=== PATIENT | male | born 1995 | race Caucasian/White ===

== ENCOUNTER 2018-04-01 06:07 | Inpatient (IN) | payer OTHER ==
[2018-04-01 07:00] LABS: HEMATOCRIT 48.3 % (42.0-52.0); HEMOGLOBIN 16.6 g/dl (13.5-17.5); MEAN CORPUSCULAR HEMOGLOBIN 30.5 pg (27.0-33.0); MEAN CORPUSCULAR HGB CONC 34.4 g/dl (32.0-36.5); MEAN CORPUSCULAR VOLUME 88.6 fl (80.0-96.0); PLATELET COUNT, AUTOMATED 275 10^3/uL (150-450); RED BLOOD COUNT 5.45 10^6/uL (4.30-6.10); RED CELL DISTRIBUTION WIDTH 11.9 % (11.5-14.5); WHITE BLOOD COUNT 6.1 10^3/uL (4.0-10.0)
[2018-04-01 07:27] LABS: AMPHETAMINES LEVEL URINE NEGATIVE (NEGATIVE); BARBITURATES URINE NEGATIVE (NEGATIVE); BENZODIAZEPINES URINE NEGATIVE (NEGATIVE); CANNABINOIDS URINE NEGATIVE (NEGATIVE); COCAINE METABOLITE URINE NEGATIVE (NEGATIVE); METHADONE URINE NEGATIVE (NEGATIVE); OPIATES URINE NEGATIVE (NEGATIVE); PHENCYCLIDINE URINE NEGATIVE (NEGATIVE)
[2018-04-01 07:39] LABS: ACETAMINOPHEN LEVEL < 2.0 UG/ML (10.0-30.0); ALBUMIN 4.8 GM/DL (3.2-5.2); ALBUMIN/GLOBULIN RATIO 1.37 (1.00-1.93); ALKALINE PHOSPHATASE 121 U/L (45-117); ALT/SGPT 33 U/L (12-78); ANION GAP 8 MEQ/L (8-16); AST/SGOT 29 U/L (7-37); BILIRUBIN,DIRECT 0.3 MG/DL (0.0-0.2); BILIRUBIN,TOTAL 1.6 MG/DL (0.2-1.0); BLOOD UREA NITROGEN 14 MG/DL (7-18); CALCIUM LEVEL 9.8 MG/DL (8.5-10.1); CARBON DIOXIDE LEVEL 29 MEQ/L (21-32); CHLORIDE LEVEL 105 MEQ/L (98-107); CREATININE FOR GFR 0.96 MG/DL (0.70-1.30); ETHYL ALCOHOL (ETHANOL) < 0.003 % (0.000-0.010); GLUCOSE, FASTING 88 MG/DL (70-100); POTASSIUM SERUM 4.2 MEQ/L (3.5-5.1); SALICYLATE LEVEL < 1.7 MG/DL (5.0-30.0); SODIUM LEVEL 142 MEQ/L (136-145); TOTAL PROTEIN 8.3 GM/DL (6.4-8.2)
[2018-04-01] MEDS ORDERED: ACETAMINOPHEN TAB 650MG DOSE (2X325MG) PO (10:15)
[2018-04-01] MEDS ORDERED: MOM 30ML SUSPENSION UDC PO (10:15)
[2018-04-01] MEDS ORDERED: MAALOX 30 ML SUSP *UDC PO (10:15)
[2018-04-01] MEDS ORDERED: ALBUTEROL 90 MCG/ACT 8GM HFA INHALER INH (10:30)
[2018-04-01] MEDS: traZODone 50 MG TAB PO (22:56)
== END 2018-04-02 10:50 | disposition home or self-care (01) | DRG 881 ==
LOC: M ED 06:07 → M ED INP 08:51 → M PSY 09:25
DX: F32.9 Major depressive disorder, single episode, unspecified (principal); J45.909 Unspecified asthma, uncomplicated

== ENCOUNTER 2019-01-05 06:22 | Emergency (ER) | payer OTHER, SELFPAY ==
[~2019-01-05] VITALS: Ht 167.6 cm; Wt 64.5 kg
[2019-01-05 06:22] VITALS: BP 139/62
[~2019-01-05 06:22] MED LIST: IBUP80TA PO; PROAAER10 INH
== END 2019-01-05 06:44 | disposition left against medical advice (07) ==
LOC: M ED 06:22
DX: Z53.29 Procedure and treatment not carried out because of patient's decision for other reasons (principal)